=== PATIENT | male | born 1960 | race Caucasian/White ===

== ENCOUNTER 2016-06-13 09:48 | Emergency (ER) | payer OTHER ==
[~2016-06-13] VITALS: Ht 152.4 cm; Wt 70.0 kg
[~2016-06-13 09:48] MED LIST: DIPH25CA6 PO; ELIM TOP; IBUP-1542 PO; IVER3TAB2 PO; NAPR-260 PO; NPH10OT BOTH EARS; OFLO5DRO7 RIGHT EAR
[2016-06-13 09:54] VITALS: Ht 152.4 cm; Wt 70.0 kg
[2016-06-13] MEDS ORDERED: SODI30SP2 NS (12:00)
[2016-06-13] MEDS ORDERED: AMOX1TAB10 PO (12:00)
[2016-06-13] MEDS ORDERED: NAPR-260 PO (12:00)
--- NOTE | 2016-06-13 12:07 | ERD ---
ER Documentation Chief Complaint Date/Time DATE: 06/13/16 TIME: 12:04 Chief Complaint sinus infection x 1 week sore throat HPI Patient is a 55-year-old homeless male who presents to the ED with runny nose, congestion and sinus pain 1 week. He also complains of mild sore throat. Denies difficulty speaking, swallowing or breathing. Denies cough. Denies chest pain, shortness of breath or difficulty breathing. Denies headache or dizziness. Denies leg pain or swelling. Denies recent travel, recent surgeries. Denies fever or chills. Denies night sweats, hemoptysis. Denies abdominal pain, nausea, vomiting, diarrhea. No other complaints. ROS All systems reviewed and are negative except as per history of present illness. Medications Home Meds Active Scripts Naproxen* (Naprosyn*) 500 Mg Tablet, 500 MG PO BID Y for PAIN AND/OR INFLAMMATION, #30 TAB Prov:JAILENE ÁLVAREZ PA-C 06/13/16 Sodium Chloride (Saline Nasal Alva) 30 Ml Alva, 30 ML NS BID for 14 Days, SPRAY Prov:JAILENE ÁLVAREZ PA-C 06/13/16 Amoxicillin/Potassium Clav (Amox-Clav 875-125 mg Tablet) 875-125 mg Tab, 1 TAB PO BID for 7 Days, #14 TAB Prov:JAILENE ÁLVAREZ PA-C 06/13/16 Ofloxacin Otic (Ofloxacin Otic) 5 Ml Drops, 5 DROP RIGHT EAR DAILY for 7 Days, # 1 BOTTLE Prov:Sheron Begum PA-C 01/22/16 Neomycin/Polymyxin/Hydrocort* (Cortisporin* Otic) 10 Ml Susp, 4 DROP BOTH EARS QID, #1 EA Prov:MANAGUELOD,[place] P VICE PRESIDENT OF TALENT MANAGEMENT 01/08/16 Naproxen* (Naprosyn*) 500 Mg Tablet, 500 MG PO BID Y for PAIN AND/OR INFLAMMATION, #30 TAB Prov:MANAGUELOD,[place] P VICE PRESIDENT OF TALENT MANAGEMENT 01/08/16 Ibuprofen* (Motrin*) 600 Mg Tab, 600 MG PO Q6, #30 TAB Prov:MANAGUELOD,[place] P VICE PRESIDENT OF [employer]ALENT MANAGEMENT 16 Ivermectin* (Stromectol*) 3 Mg Tab, 4 TAB PO ONCE, #4 TAB Prov:MANAGUELOD,[place] P VICE PRESIDENT OF [employer]ALENT MANAGEMENT 10/30/16 Diphenhydramine Hcl (Benadryl) 25 Mg Cap, 25 MG PO Q8 for ITCHING for 7 Days, # 30 CAP Prov:MANAGGARCIAOD,[place] P VICE PRESIDENT OF [employer]ALENT MANAGEMENT 01/08/16 Permethrin* (Elimite*) 5% Cr, 1 APPLIC TOP ONCE for scabies for 1 Day, #1 TUB Prov:MANAGUELOD,[place] P VICE PRESIDENT OF [employer]ALENT MANAGEMENT 01/08/16 Permethrin* (Elimite*) 5% Cr, 1 APPLIC TOP ONCE, #1 TUB Prov:KANNAN CARTAGENAJana DO 01/01/16 Ivermectin* (Stromectol*) 3 Mg Tab, 3 MG PO times one, #4 TAB Take 4 tablets by mouth 1 in 2 weeks Prov:KANNAN CARTAGENAJana DO 01/01/16 Reported Medications [None] No Conflict Check 01/15/13 Allergies Allergies: Coded Allergies: No Known Drug Allergies (Verified Allergy, Unknown, 01/08/16) PMhx/Soc History of Surgery: No Anesthesia Reaction: No Hx Neurological Disorder: No Hx Respiratory Disorders: No Hx Cardiac Disorders: No Hx Psychiatric Problems: No Hx Miscellaneous Medical Probl: No Hx Alcohol Use: Yes Hx Substance Use: Yes (MARIJUANA) Hx Tobacco Use: Yes Smoking Status: Current every day smoker FmHx Family History: No coronary disease, No diabetes, No other Physical Exam Vitals Vital Signs Date Time Temp Pulse Resp B/P Pulse Ox O2 Delivery O2 Flow Rate FiO2 06/13/16 09:54 97.8 90 18 119/68 97 Physical Exam GENERAL: Well-developed, well-nourished male. Appears in no acute distress. HEAD: Normocephalic, atraumatic. EYES: Pupils are equally reactive bilaterally. EOMs grossly intact. No conjunctival erythema. ENT: Moist mucous membranes. No uvula deviation. No kissing tonsils. No exudates. Bilateral TMs are nonerythematous and nondraining. NECK: Supple. No lymphadenopathy or thyromegaly. No meningismus. negative kernig. negative brudinski. LUNG: Clear to auscultation bilaterally. No rhonchi, wheezing, rales or coarse breath sounds. HEART: Regular rate and rhythm. No murmurs, rubs or gallops. Extremities: Equal pulses bilaterally. No peripheral clubbing, cyanosis or edema. No unilateral leg swelling. Negative Homans sign NEUROLOGIC: Alert and oriented. Moving all four extremities. 5/5 strength in all extremities. Normal speech. Steady gait. SKIN: Normal color. Warm and dry. No rashes or lesions. Capillary refill < 2 seconds Procedures/MDM ER COURSE: I kept the patient and/or family informed of laboratory and diagnostic imaging results throughout the emergency room course. MEDICAL DECISION MAKING: This is a 55-year-old male who presents with sinus pain, congestion and runny nose 1 week. Vital signs were reviewed. Patient is afebrile. Patient is not hypoxic. Patient is not toxic or ill-appearing. Patient likely has sinusitis. I do not think a chest x-ray is warranted at this time as his lung examination is within normal limits and he does not show signs of respiratory distress, night sweats or hemoptysis. Low suspicion for pneumonia, PE, pneumothorax, ACS, epiglottitis, obstruction, TB, pertussis, meningitis, sepsis. Low suspicion for peritonsillar abscess, strep pharyngitis, mononucleosis, dental abscess. Low suspicion for ACS, PE, AAA, dissection, DVT DISCHARGE: At this time, patient is stable for discharge and outpatient management with no new complaints during the ER course. Patient was sent home with Augmentin, saline nasal spray and ibuprofen for pain. Patient will be discharged home with instructions to recheck for new or worsening symptoms such as fever, nausea, weakness, LOC and to follow up with primary care in the next 1-2 days. Patient was advised to return to the ER for any new or worsening symptoms. Plan was discussed and patient and/or family understands and agrees. Home instructions were given. Departure Diagnosis: Primary Impression: Sinusitis Sinusitis location: maxillary Chronicity: acute Recurrence: not specified as recurrent Qualified Code: J01.00 - Acute maxillary sinusitis, recurrence not specified Condition: Stable Patient Instructions: Sinusitis, Abx Tx Referrals: COMMUNITY CLINICS YOU HAVE RECEIVED A MEDICAL SCREENING EXAM AND THE RESULTS INDICATE THAT YOU DO NOT HAVE A CONDITION THAT REQUIRES URGENT TREATMENT IN THE EMERGENCY DEPARTMENT. FURTHER EVALUATION AND TREATMENT OF YOUR CONDITION CAN WAIT UNTIL YOU ARE SEEN IN YOUR DOCTORS OFFICE WITHIN THE NEXT 1-2 DAYS. IT IS YOUR RESPONSIBILITY TO MAKE AN APPOINTMENT FOR FOLOW-UP CARE. IF YOU HAVE A PRIMARY DOCTOR --you should call your primary doctor and schedule an appointment IF YOU DO NOT HAVE A PRIMARY DOCTOR YOU CAN CALL OUR PHYSICIAN REFERRAL HOTLINE AT IF YOU CAN NOT AFFORD TO SEE A PHYSICIAN YOU CAN CHOSE FROM THE FOLLOWING [facility] CLINICS [facility] [address] [facility] [address] [facility] [address] [facility] [address] [facility] [facility] [address] [facility]. [facility]. [address] Additional Instructions: Call your primary care doctor TOMORROW for an appointment during the next 1-2 days.See the doctor sooner or return here if your condition worsens before your appointment time. JAILENE ÁLVAREZ PA-C Jun 13, 2016 12:07
== END 2016-06-13 12:10 | disposition home or self-care (01) ==
LOC: FTE 09:48
DX: J01.00 Acute maxillary sinusitis, unspecified (principal); F17.210 Nicotine dependence, cigarettes, uncomplicated
CPT/HCPCS: 99283

== ENCOUNTER 2016-12-06 08:40 | Emergency (ER) | payer OTHER ==
[~2016-12-06] VITALS: Ht 170.2 cm; Wt 59.5 kg
[~2016-12-06 08:40] MED LIST changes: -DIPH25CA6 PO; +HYDR-842 PO; -IBUP-1542 PO; -IVER3TAB2 PO; -NAPR-260 PO; -NPH10OT BOTH EARS; -OFLO5DRO7 RIGHT EAR; +SULF1TAB31 PO
[2016-12-06 08:43] VITALS: Ht 170.2 cm; Wt 59.5 kg
[2016-12-06] MEDS ORDERED: PERM120L5 TP (09:06)
[2016-12-06] MEDS ORDERED: PERMETHRIN 5% 60 GM CR TOP ONE (09:30)
--- NOTE | 2016-12-06 10:34 | ERD ---
ER Documentation Chief Complaint Date/Time DATE: 12/06/16 TIME: 10:30 Chief Complaint rash (scabies), feels like there is something in my left ear HPI 55-year-old male complaining of insects all over his body. Patient states this is been going on for a while he has not used medications for. Patient states he is very itchy and the "bugs are infesting him". Patient is homeless. Other medical problems. ROS All systems reviewed and are negative except as per history of present illness. Medications Home Meds Active Scripts Permethrin (Permethrin) 120 Ml Liquid, 120 ML TP DAILY, #1 BOTTLE Prov:ALLYSSA GORDON PA-C 12/06/16 Hydroxyzine Hcl* (Atarax*) 25 Mg Tab, 25 MG PO Q6H Y for ITCHING, #14 TAB Prov:BREANA WRIGHT MD 11/27/16 Sulfamethoxazole/Trimethoprim* (Bactrim Ds* Tablet) 1 Each Tablet, 1 TAB PO BID for 10 Days, TAB Prov:BREANA WRIGHT MD 11/27/16 Permethrin* (Elimite*) 5% Cr, 1 APPLIC TOP ONCE, #1 TUB Prov:BREANA WRIGHT MD 11/27/16 Allergies Allergies: Coded Allergies: No Known Drug Allergies (Verified Allergy, Unknown, 11/27/16) PMhx/Soc History of Surgery: No Anesthesia Reaction: No Hx Neurological Disorder: No Hx Respiratory Disorders: No Hx Cardiac Disorders: No Hx Psychiatric Problems: No Hx Miscellaneous Medical Probl: Yes (alcoholic) Hx Alcohol Use: Yes Hx Substance Use: Yes (MARIJUANA) Hx Tobacco Use: Yes Smoking Status: Current every day smoker Physical Exam Vitals Vital Signs Date Time Temp Pulse Resp B/P Pulse Ox O2 Delivery O2 Flow Rate FiO2 12/06/16 08:43 98.2 89 18 130/63 99 Physical Exam GENERAL: The patient is well-appearing, well-nourished, in no acute distress CHEST: Clear to auscultation bilaterally. There are no rales, wheezes or rhonchi. HEART: Regular rate and rhythm. No murmurs, clicks, rubs or gallops. No S3 or S4. SKIN: Adult lice lies all over patient's body. Multiple erythematous patches and excoriations secondary to itching. No vesicles or purulence. Results 24 hrs Current Medications Medications (Trade) Dose Ordered Sig/Miky Route PRN Reason Start Time Stop Time Status Last Admin Dose Admin Permethrin (Elimite 5% Cr) 1 applic ONCE ONCE TOP 12/06/16 09:30 12/06/16 09:31 DC Procedures/MDM ER course: Patient was sent to the showers and all close were removed and patient was washed. Permethrin was applied to patient's body. Tolerated procedure well. MDM: 55-year-old male complaining of bugs on body. Adult lice were visualized on patient's body. Patient was treated in the emergency room and all clothes were disposed of. Patient was written another prescription for permethrin and recommended to apply in 1 week if needed. Patient was told to clean and treat his living facilities. Patient is told if symptoms change or worsen to return to the emergency room. All questions answered at discharge Departure Diagnosis: Primary Impression: Lice Condition: Stable Patient Instructions: Lice, Head, Lice, Pubic Referrals: [facility] YOU HAVE RECEIVED A MEDICAL SCREENING EXAM AND THE RESULTS INDICATE THAT YOU DO NOT HAVE A CONDITION THAT REQUIRES URGENT TREATMENT IN THE EMERGENCY DEPARTMENT. FURTHER EVALUATION AND TREATMENT OF YOUR CONDITION CAN WAIT UNTIL YOU ARE SEEN IN YOUR DOCTORS OFFICE WITHIN THE NEXT 1-2 DAYS. IT IS YOUR RESPONSIBILITY TO MAKE AN APPOINTMENT FOR FOLOW-UP CARE. IF YOU HAVE A PRIMARY DOCTOR --you should call your primary doctor and schedule an appointment IF YOU DO NOT HAVE A PRIMARY DOCTOR YOU CAN CALL OUR PHYSICIAN REFERRAL HOTLINE AT IF YOU CAN NOT AFFORD TO SEE A PHYSICIAN YOU CAN CHOSE FROM THE FOLLOWING [facility] [address] [facility]. [facility] [address] [facility] [address] [facility] [address] [facility]. [facility] [address] [facility] [facility]. [address] Additional Instructions: FOLLOW UP WITH YOUR PRIMARY CARE PHYSICIAN TOMORROW.Return to this facility if you are not improving as expected. ALLYSSA GORDON PA-C Dec 06, 2016 10:34
[2016-12-06] MEDS ORDERED: CEPH-443 PO (11:10)
== END 2016-12-06 11:21 | disposition home or self-care (01) ==
LOC: FTE 08:40
DX: B85.0 Pediculosis due to Pediculus humanus capitis (principal); F17.210 Nicotine dependence, cigarettes, uncomplicated
CPT/HCPCS: Z7502; Z7610; 99283

== ENCOUNTER 2016-12-09 09:13 | Emergency (ER) | payer OTHER ==
[~2016-12-09] VITALS: Wt 78.0 kg
[~2016-12-09 09:13] MED LIST changes: +CEPH-443 PO; +PERM120L5 TP
--- NOTE | 2016-12-09 09:45 | ERA ---
ER Documentation Chief Complaint Date/Time DATE: 12/09/16 TIME: 09:43 Chief Complaint itchy recently seen for similar problem HPI This is a 55-year-old male with a history of alcoholism, homelessness, recent diagnosis of scabies and lice, prescribed permethrin and Atarax in the past who is presenting with persistent itching and scratching. The patient has multiple excoriated lesions on his extremities and his torso. He states that he is very itchy, so he scratches for relief. He is concerned that some of his lesions have not healed and could become infected. He also reports that he ran out of his permethrin cream as well as his Atarax. The patient denies feeling sick recently. The patient denies fever or chills. The patient has had no headache or vision changes. The patient denies lightheadedness or dizziness. The patient has had no chest pain or shortness of breath trouble breathing. The patient denies abdominal pain or changes to bowel movements or urination. The patient has had no focal deficits. The patient has had no weakness or numbness or tingling to the face or extremities. ROS All systems reviewed and are negative except as per history of present illness. Medications Home Meds Discontinued Scripts Cephalexin* (Keflex*) 500 Mg Capsule, 500 MG PO QID for 7 Days, CAP Prov:ALLYSSA GORDON PA-C 12/06/16 Permethrin (Permethrin) 120 Ml Liquid, 120 ML TP DAILY, #1 BOTTLE Prov:ALLYSSA GORDON PA-C 12/06/16 Hydroxyzine Hcl* (Atarax*) 25 Mg Tab, 25 MG PO Q6H Y for ITCHING, #14 TAB Prov:BREANA WRIGHT MD 11/27/16 Sulfamethoxazole/Trimethoprim* (Bactrim Ds* Tablet) 1 Each Tablet, 1 TAB PO BID for 10 Days, TAB Prov:BREANA WRIGHT MD 11/27/16 Permethrin* (Elimite*) 5% Cr, 1 APPLIC TOP ONCE, #1 TUB Prov:BREANA WRIGHT MD 11/27/16 Allergies Allergies: Coded Allergies: No Known Drug Allergies (Verified Allergy, Unknown, 12/09/16) PMhx/Soc Medical and Surgical Hx: pt denies Medical Hx, pt denies Surgical Hx History of Surgery: No Anesthesia Reaction: No Hx Neurological Disorder: No Hx Respiratory Disorders: No Hx Cardiac Disorders: No Hx Psychiatric Problems: No Hx Miscellaneous Medical Probl: Yes (alcoholic) Hx Alcohol Use: Yes Hx Substance Use: Yes (MARIJUANA) Hx Tobacco Use: Yes Smoking Status: Current every day smoker FmHx Family History: No diabetes Physical Exam Vitals Vital Signs Date Time Temp Pulse Resp B/P Pulse Ox O2 Delivery O2 Flow Rate FiO2 12/09/16 09:16 98.0 92 18 122/70 99 Physical Exam Const: No apparent distress, well-developed, well-nourished Head: Atraumatic Eyes: Normal Conjunctiva. Extraocular movements intact. ENT: Normal External Ears, Nose and Mouth. Neck: Full range of motion. ~ No meningismus. Resp: Clear to auscultation bilaterally Cardio: Regular rate and rhythm, no murmurs Abd: Soft, non tender, non distended. Normal bowel sounds Skin: No petechiae. Excoriated lesions to the extremities and torso. There are a few scabbing lesions in these areas. The lesions do not appear infected at this time. There is no purulence. There is mild erythema, but it does not appear similar to cellulitis. There is no induration. There is no warmth. There is no edema. Back: No midline or flank tenderness Ext: No cyanosis, or edema Neur: Awake and alert, oriented 4. Cranial nerves intact. No facial droop. Normal strength and sensation in all extremities. Coordination with finger to nose normal. Psych: Normal Mood and Affect Results 24 hrs Current Medications Medications (Trade) Dose Ordered Sig/Miky Route PRN Reason Start Time Stop Time Status Last Admin Dose Admin Sodium Chloride (NS) 1,000 ml @ 1,000 mls/hr Q1H STAT IV 12/09/16 10:19 12/09/16 11:04 DC Procedures/MDM MDM The patient essentially presented for refill of his medications. When speaking with the patient, I told him that I would be able to do this if needed. However , on review previous records, the patient has not had blood work done in several years. The patient has long-standing history of alcoholism and chronic heavy alcohol abuse daily. While his symptoms could be related to lice or scabies, he has diffuse itching which is more associated with a more generalized pruritus. I discussed with the patient the need to obtain blood work today for evaluation of his liver. He stated that this sounded like a good idea because he wanted to get to the bottom of this. I had intended to prescribe him antipruritic medication in the emergency department. However, prior to obtaining blood work, the patient eloped. The patient's vital signs were stable, and I do not see an emergent etiology of pruritus. He may be reevaluated if he returns. It would be prudent for him to follow-up with a primary care doctor. Prior to his elopement, I did discuss this with him. Departure Diagnosis: Primary Impression: Generalized pruritus Additional Impressions: Hx of scabies Scratch History of lice Alcohol abuse Condition: JOSIAH Granados MD Dec 09, 2016 09:45
[2016-12-09] MEDS ORDERED: SOD CHLORIDE 0.9% 1,000 ML IV STA (10:19)
== END 2016-12-09 11:04 | disposition left against medical advice (07) ==
LOC: E/R 09:13
DX: L29.9 Pruritus, unspecified (principal); R40.2252 Coma scale, best verbal response, oriented, at arrival to emergency department; F10.10 Alcohol abuse, uncomplicated; R40.2142 Coma scale, eyes open, spontaneous, at arrival to emergency department; R40.2362 Coma scale, best motor response, obeys commands, at arrival to emergency department; F17.210 Nicotine dependence, cigarettes, uncomplicated; Z86.19 Personal history of other infectious and parasitic diseases
CPT/HCPCS: J7030; Z7502; 99282

== ENCOUNTER 2017-04-17 10:18 | Emergency (ER) | END 2017-04-17 12:36 | disposition home or self-care (01) ==

== ENCOUNTER 2017-08-02 23:32 | Emergency (ER) | END 2017-08-03 04:16 | disposition home or self-care (01) ==

== ENCOUNTER 2017-12-19 09:28 | Emergency (ER) | END 2017-12-19 11:52 | disposition home or self-care (01) ==

== ENCOUNTER 2018-06-08 22:43 | Emergency (ER) | payer OTHER ==
[~2018-06-08] VITALS: Ht 177.8 cm; Wt 59.5 kg
[~2018-06-08 22:43] MED LIST changes: -CEPH-443 PO; -HYDR-842 PO; +IBUP-1542 PO; +NAPR-688 PO; +ONDA4TAB11 PO; -PERM120L5 TP; -SULF1TAB31 PO
[2018-06-08 22:55] VITALS: Ht 177.8 cm; Wt 59.5 kg
[2018-06-09] MEDS ORDERED: KETOROLAC 60 MG INJ IM STA (04:53)
[2018-06-09] MEDS ORDERED: traMADol 50 MG TAB PO ONE (05:00)
[2018-06-09] MEDS ORDERED: LIDOCAINE 1% (MPF) 5 ML VIAL INFIL ONE (05:00)
[2018-06-09] MEDS ORDERED: CEFTRIAXONE 1 GM INJ IM ONE (05:00)
[2018-06-09] MEDS ORDERED: AMOX1TAB10 PO (05:55)
[2018-06-09] MEDS ORDERED: NAPR-985 PO (05:55)
[2018-06-09 06:41] VITALS: BP 122/79; PULSE 75; RESP 18
--- NOTE | 2018-06-17 13:55 | ERD ---
ER Documentation Chief Complaint Chief Complaint right upper tooth infection x few days HPI History of Present Illness: Patient coming in today with complaint of possible right upper tooth infection that has been present for approximately 3 days. Patient reports noticing swelling to right cheek and nausea. Patient denies any other associated symptoms. Patient with known history of severe dental decay. At home pharmacological/nonpharmacological treatment for symptoms: Denies Denies social concerns; Denies recent foreign travel ROS All systems reviewed and are negative except as per history of present illness. Medications Home Meds Active Scripts Naproxen* (Naprosyn*) 500 Mg Tablet, 500 MG PO BID PRN for PAIN AND/OR INFLAMMATION, #30 TAB Prov:ART GREEN V AVIONICS TECHNICIAN 06/09/18 Amoxicillin/Potassium Clav (Amox-Clav 875-125 mg Tablet) 875-125 mg Tab, 1 TAB PO BID for dental infection for 10 Days, #20 TAB Prov:ART GREEN V AVIONICS TECHNICIAN 06/09/18 Ibuprofen* (Motrin*) 600 Mg Tab, 600 MG PO Q6, #30 TAB Prov:JAVY ZAMBRANO PA-C 12/19/17 Permethrin* (Elimite*) 5% Cr, 1 APPLIC TOP ONCE, #1 TUB 1 Refill Prov:NU SMITH DO 08/03/17 Ondansetron (Zofran Odt) 4 Mg Tab.rapdis, 4 MG PO Q6 for NAUSEA AND/OR VOMITING, #10 Prov:NU SMITH DO 08/03/17 Naproxen* (Naproxen*) 500 Mg Tablet, 500 MG PO BID PRN for PAIN, #20 TAB Prov:NU SMITH DO 08/03/17 Allergies Allergies: Coded Allergies: No Known Drug Allergies (Verified Allergy, Unknown, 12/19/17) PMhx/Soc History of Surgery: No Anesthesia Reaction: No Hx Neurological Disorder: No Hx Respiratory Disorders: No Hx Cardiac Disorders: No Hx Psychiatric Problems: No Hx Miscellaneous Medical Probl: Yes (alcoholic) Hx Alcohol Use: Yes Hx Substance Use: Yes (MARIJUANA) Hx Tobacco Use: Yes Smoking Status: Current every day smoker FmHx Family History: No diabetes, No coronary disease Physical Exam Physical Exam Const: No acute distress Head: Atraumatic Eyes: Normal Conjunctiva ENT: Normal External Ears, Nose. Severe dilatation noted to mouth. Purulent drainage noted to tooth to right upper quadrant, currently draining. Neck: Full range of motion. No meningismus. Resp: Clear to auscultation bilaterally Cardio: Regular rate and rhythm, no murmurs Abd: Soft, non tender, non distended. Normal bowel sounds Skin: No petechiae or rashes Back: No midline or flank tenderness Ext: No cyanosis, or edema Neur: Awake and alert Psych: Normal Mood and Affect Results 24 hrs Current Medications Medications Dose Sig/Miky Start Time Status Last (Trade) Ordered Route PRN Stop Time Admin Dose Reason Admin Ceftriaxone 1 gm ONCE ONCE 06/09/18 DC 06/09/18 Sodium IM 05:00 06/09/18 05:17 (Rocephin) 05:01 Lidocaine 2.1 ml ONCE ONCE 06/09/18 DC 06/09/18 (Xylocaine INFIL 05:00 06/09/18 05:18 1% (Mpf)) 05:01 Ketorolac 60 mg ONCE STAT 06/09/18 DC 06/09/18 Tromethamine IM 04:53 06/09/18 05:18 (Toradol) 04:56 Tramadol 50 mg ONCE ONCE 06/09/18 DC 06/09/18 HCl PO 05:00 06/09/18 05:18 (Ultram) 05:01 Procedures/MDM ED course includes a thorough examination and history. Medications: Ceftriaxone for dental infection, tramadol for pain Imaging: -- Labs: -- Low suspicion for life-threatening medical emergency. Low suspicion for dental emergency that requires hospitalization or immediate surgical intervention. Low suspicion for HEENT or infectious emergency that requires hospitalization or immediate intervention. Otherwise healthy patient presenting with constellation of symptoms likely representing dental abscess characterized by history, physical exam findings. No respiratory distress, otherwise relatively well appearing and nontoxic. Patient educated on diagnoses, prescriptions, follow-up care, return precautions. Strict return precautions given for worsening condition; questions answered discharge. Disposition for discharge with followup in 1-2 days with PCP/clinic, preferably dentist; referrals given. Departure Diagnosis: Primary Impression: Abscess, dental Condition: Stable Patient Instructions: Dental Abscess Referrals: COMMUNITY CLINICS YOU HAVE RECEIVED A MEDICAL SCREENING EXAM AND THE RESULTS INDICATE THAT YOU DO NOT HAVE A CONDITION THAT REQUIRES URGENT TREATMENT IN THE EMERGENCY DEPARTMENT. FURTHER EVALUATION AND TREATMENT OF YOUR CONDITION CAN WAIT UNTIL YOU ARE SEEN IN YOUR DOCTORS OFFICE WITHIN THE NEXT 1-2 DAYS. IT IS YOUR RESPONSIBILITY TO MAKE AN APPOINTMENT FOR FOLOW-UP CARE. IF YOU HAVE A PRIMARY DOCTOR --you should call your primary doctor and schedule an appointment IF YOU DO NOT HAVE A PRIMARY DOCTOR YOU CAN CALL OUR PHYSICIAN REFERRAL HOTLINE AT IF YOU CAN NOT AFFORD TO SEE A PHYSICIAN YOU CAN CHOSE FROM THE FOLLOWING [facility] [address] [facility] [address] [facility] [address] [facility] [address] [facility] [address] [facility]. [facility] [address] [facility]. [facility] YOU HAVE RECEIVED A MEDICAL SCREENING EXAM AND THE RESULTS INDICATE THAT YOU DO NOT HAVE A CONDITION THAT REQUIRES URGENT TREATMENT IN THE EMERGENCY DEPARTMENT. FURTHER EVALUATION AND TREATMENT OF YOUR CONDITION CAN WAIT UNTIL YOU ARE SEEN IN YOUR DOCTORS OFFICE WITHIN THE NEXT 1-2 DAYS. IT IS YOUR RESPONSIBILITY TO MAKE AN APPOINTMENT FOR FOLOW-UP CARE. IF YOU HAVE A PRIMARY DOCTOR --you should call your primary doctor and schedule and appointment IF YOU DO NOT HAVE A PRIMARY DOCTOR YOU CAN CALL OUR PHYSICIAN REFERRAL HOTLINE AT . IF YOU CAN NOT AFFORD TO SEE A PHYSICIAN YOU CAN CHOSE FROM THE FOLLOWING [facility]: [facility] [address] [place] [address] [facility] [address] [place] [address] [facility] [address] [place] [address] [facility] ([facility] walk in clinic) Additional Instructions: Kristi discharge instructions. Thank you very much for allowing us to participate in your care. Your health and safety is our top priority at [facility]. It is important to read all discharge instructions and education provided in your discharge packet. Call your primary care doctor TODAY for an appointment during the next 1-2 days and bring all the information and medications prescribed. You also need to call and make an appointment with dentist. You need reevaluation. This is very important Have prescriptions filled and follow precisely the directions on the label. If the symptoms get worse and your provider is unavailable, return to the Emergency Department immediately. Return for fever, chills, altered mental status, vomiting, severe abdominal pain, facial swelling ART GREEN NP Jun 17, 2018 13:55
== END 2018-06-09 06:42 | disposition home or self-care (01) ==
LOC: FTE 22:43
DX: K04.7 Periapical abscess without sinus (principal)
CPT/HCPCS: 96372; J0696; J1885; Z7502; Z7610

== ENCOUNTER 2018-10-18 05:38 | Emergency (ER) | payer OTHER ==
[~2018-10-18] VITALS: Ht 177.8 cm; Wt 59.3 kg
[~2018-10-18 05:38] MED LIST changes: +AMOX1TAB10 PO; +CHLO25CA9 PO; +NAPR-985 PO
[2018-10-18 05:54] VITALS: Ht 177.8 cm; Wt 59.3 kg
--- NOTE | 2018-10-18 06:45 | ERD ---
ER Documentation Chief Complaint Chief Complaint BIB RESCUE. ETOH INTOXICATION. HOMELESS. HPI 57-year-old male experiencing homelessness. And history of alcohol abuse. Brought in by EMS for acute alcohol intoxication. Patient states his last drink was over 12 hours ago, denies sensation of withdrawals at this time. Patient is endorsing a sensation of tickling on his neck states that it is not inside his throat but outside on his skin isolated to this region only states he has had this for several years and it is bothering him. Denies any trouble swallowing, speaking or moving his head. Denies any pain. Denies any trauma. No nausea or vomiting. Patient does have a history of Surgeries to his left eye and states that his left eye conjunctiva has been red since he was a child ROS All systems reviewed and are negative except as per history of present illness. Medications Home Meds Active Scripts Naproxen* (Naprosyn*) 500 Mg Tablet, 500 MG PO BID PRN for PAIN AND/OR INFLAMMATION, #30 TAB Prov:[employer] 06/09/18 Amoxicillin/Potassium Clav (Amox-Clav 875-125 mg Tablet) 875-125 mg Tab, 1 TAB PO BID for dental infection for 10 Days, #20 TAB Prov:[employer] 06/09/18 Ibuprofen* (Motrin*) 600 Mg Tab, 600 MG PO Q6, #30 TAB Prov:JAVY ZAMBRANO PA-C 12/19/17 Permethrin* (Elimite*) 5% Cr, 1 APPLIC TOP ONCE, #1 TUB 1 Refill Prov:NU SMITH DO 08/03/17 Ondansetron (Zofran Odt) 4 Mg Tab.rapdis, 4 MG PO Q6 for NAUSEA AND/OR VOMITING, #10 Prov:NU SMITH DO 08/03/17 Naproxen* (Naproxen*) 500 Mg Tablet, 500 MG PO BID PRN for PAIN, #20 TAB Prov:NU SMITH DO 08/03/17 Allergies Allergies: Coded Allergies: No Known Drug Allergies (Verified Allergy, Unknown, 12/19/17) PMhx/Soc Medical and Surgical Hx: pt denies Surgical Hx History of Surgery: No Anesthesia Reaction: No Hx Neurological Disorder: Yes (BIPOLAR) Hx Respiratory Disorders: No Hx Cardiac Disorders: No Hx Psychiatric Problems: No Hx Miscellaneous Medical Probl: Yes (alcoholic) Hx Alcohol Use: Yes Hx Substance Use: Yes (MARIJUANA) Hx Tobacco Use: Yes Smoking Status: Current every day smoker Physical Exam Vitals Vital Signs Date Temp Pulse Resp B/P (MAP) Pulse Ox O2 O2 Flow FiO2 Time Delivery Rate 10/18/18 76 16 114/74 96 Room Air 08:30 (87) 10/18/18 80 16 134/95 98 Room Air 07:00 (108) 10/18/18 97.9 76 18 111/83 97 05:54 (92) Physical Exam Const: Well-appearing Head: Atraumatic Eyes: Normal Conjunctiva ENT: Normal External Ears, Nose and Mouth. Posterior oropharynx without erythema, edema, exudate. Neck: Full range of motion. No meningismus. No lesions on skin. No stridor Resp: Clear to auscultation bilaterally Cardio: Regular rate and rhythm, no murmurs Abd: Soft, non tender, non distended. Normal bowel sounds Skin: No petechiae or rashes Back: No midline or flank tenderness Ext: No cyanosis, or edema Neur: Awake and alert Psych: Normal Mood and Affect Results 24 hrs Current Medications Medications Dose Sig/Miky Start Time Status Last (Trade) Ordered Route PRN Stop Time Admin Dose Reason Admin Lidocaine 15 ml ONCE ONCE 10/18/18 DC 10/18/18 (Xylocaine PO 07:00 08:22 (Viscous)) 10/18/18 07:01 Procedures/MDM Patient presents with acute alcohol intoxication without evidence of co- ingestion or trauma per history and exam. Will observe patient in ED with frequent monitoring and reassessment. Plan to PO trial, reassess mental status, and assess gait when more stable. No evidence of withdrawal currently. Patient's sensation of tickle on his neck is with low suspicion of acute pathology. No evidence of airway compromise, no overt evidence of infection or trauma to neck. Will try viscous lidocaine and close follow-up. Patient ambulatory. Social work saw patient assistance with half-way and rehab resources. No acute withdrawal. Clinically sober. Will discharge. Departure Condition: Stable BAHMAN NORWOOD MD Oct 18, 2018 06:45
[2018-10-18] MEDS ORDERED: LIDOCAINE 2% VISC 15 ML CUP PO ONE (07:00)
[2018-10-18] MEDS ORDERED: CHLORDIAZEPOXIDE 25 MG CAP PO ONE (12:30)
[2018-10-18 13:20] VITALS: BP 132/94; PULSE 74; RESP 16
== END 2018-10-18 13:20 | disposition home or self-care (01) ==
LOC: E/R 05:38
DX: F10.129 Alcohol abuse with intoxication, unspecified (principal); F17.210 Nicotine dependence, cigarettes, uncomplicated; Z59.0 Homelessness
CPT/HCPCS: Z7502; Z7610; 99283